=== PATIENT | female | born 1985 | race Caucasian/White ===

== ENCOUNTER 2019-07-21 17:16 | Inpatient (IN) | payer OTHER ==
[~2019-07-21 17:16] MED LIST: Bupivacaine 0.25% HCL 30 ML VIAL ONE; Bupivacaine PF 0.5% 30 ML VIAL ONE
[2019-07-21 18:10] VITALS: BMI 31.4
[2019-07-21] MEDS ORDERED: hydrALAZINE 20 MG/ML VIAL ONE (18:17)
[2019-07-21] MEDS ORDERED: Promethazine HCl 25 MG/ML VIAL IM PRN ×2 (18:20→22:59)
[2019-07-21] MEDS ORDERED: Betamet Acet/Betamet Na Ph 30 MG/5 ML VIAL ONE (18:20)
[2019-07-21] MEDS ORDERED: Acetaminophen 500 MG TAB PO PRN (18:20)
[2019-07-21] MEDS ORDERED: Ondansetron PF 4 MG/2 ML Vial IVP PRN ×2 (18:20→22:59)
[2019-07-21] MEDS ORDERED: hydrALAZINE 20 MG/ML VIAL SLOW IVP PRN (18:20)
[2019-07-21] MEDS ORDERED: Butorphanol Tartrate 1 MG/ML VIAL SLOW IVP PRN (18:20)
[2019-07-21] MEDS ORDERED: Calcium Gluc 4.6 MEQ/10 ML (100 MG/ML) SLOW IVP PRN ×2 (18:22→18:53)
[2019-07-21] MEDS ORDERED: Betamet Acet/Betamet Na Ph 30 MG/5 ML VIAL IM SCH (18:30)
--- NOTE | 2019-07-21 18:41 | PDOC.LDHP ---
Labor and Delivery H&P Chief complaint: other (JONES, elevated BPs) HPI: 33 y/o at 33w6d, patient of Dr. Pizano, presents with JONES and elevated BPs at home. Pt has tried excedrin migraine, ice, and heat with no relief. Has hx of tension JONES but has not had one in a while. Reports elevated BPs in clinic this week and was started on Nifedipine Wednesday. Denies RUQ pain, vision changes or other concerns. Denies VB, LOF, ctx, or decreased FM. ROS neg for HEENT, CV, pulm, GI, , neuro, psych, skin, musculoskeletal, or constitutional symptoms other than mentioned above. OB History Details: 3 prior deliveries, 1 for preeclampsia, other 2 were PTL. Current complications: gestational diabetes Past Medical History: None Current medications: pre- vitamins, other ([place], Metformin, Nifedipine) Previous surgical history: cholecystectomy Allergies/Adverse Reactions: Allergies Allergy/AdvReac Type Severity Reaction Status Date / Time No Known Allergies Allergy Verified 07/21/19 18:46 Social history: none - Physical Exam Abnormal vital signs: Severe range BPs General: NAD, resting Lungs: nonlabored breathing Abdomen: gravid Extremeties: no edema FHT: category 1 (135, mod variability, + accels, no decels) [place] contractions every: none - Assessment 33 y/o at 33w6d with severe range BPs requiring IV antihypertensives. - Plan -: Admit to L&D for BP monitoring, labs. Will administer celestone for lung maturity. NICU notified. GHTN or preeclampsia with severe features is indication for induction at 34 weeks (after midnight tonight). Dr. Shultz covering for Dr. Pizano this weekend, notified. Will proceed with plan to induce tonight and start MgSO4 now.
[2019-07-21] MEDS: Labetalol HCl 100 MG/20 ML VIAL SLOW IVP PRN ×2 (18:48→21:05)
[2019-07-21] MEDS ORDERED: Magnesium Sulfate 20 gm/500 ml 20 GM/500 ML BAG ONE (18:55)
[2019-07-21 18:59] LABS: Mean Corpuscular HGB CONC 32.6 g/dL (32.0-36.0); Mean Corpuscular Hemoglobin 26.3 pg (27.0-31.0); Mean Corpuscular Volume 80.7 fL (78.0-98.0); Mean Platelet Volume 9.2 fL (7.4-10.4); Platelet Count 271 thou/uL (130-400); RBC Distribution Width 15.5 % (11.5-14.5); Red Blood Cell (RBC) Count 4.93 mill/uL (4.20-5.40); White Blood Cell (WBC) Count 7.8 thou/uL (4.8-10.8)
[2019-07-21] MEDS ORDERED: Magnesium Sulfate 20 GM/WATER 500 ML BAG IVPB SCH (19:00)
[2019-07-21] MEDS: Magnesium Sulfate 20 gm/500 ml 20 GM/500 ML BAG IVPB SCH (19:34)
[2019-07-21] MEDS: Lactated Ringer's 1,000 ML IV SCH (19:35)
[2019-07-21 19:36] LABS: Creatinine, Urine 99.77 mg/dL (47-110)
[2019-07-21 19:38] LABS: Syphilis Antibody Nonreactive (Nonreactive); Syphilis Antibody Index 0.04 S/CO (<1.00 Non-Reactive)
[2019-07-21] MEDS ORDERED: Lidocaine 1% (PF) 30 ML VIAL SC PRN (19:58)
[2019-07-21] MEDS ORDERED: Ibuprofen 800 MG TAB PO PRN (19:58)
[2019-07-21] MEDS ORDERED: NS / Oxytocin 40 units/1000ml 1,000 ML IV PRN (19:58)
[2019-07-21] MEDS ORDERED: Misoprostol 200 MCG TAB PR PRN (19:58)
[2019-07-21] MEDS ORDERED: Carboprost 250 MCG/ML AMP IM PRN (19:58)
[2019-07-21] MEDS ORDERED: HYDROcodone/Acetaminophen 5/325 mg Tablet PO PRN ×2 (19:58)
[2019-07-21] MEDS ORDERED: Diphenoxylate HCl/Atropine Tablet PO PRN ×2 (19:58)
[2019-07-21] MEDS ORDERED: Penicillin G Potassium 5 MILL.UNITS in Sodium Chloride 0.9% 100 ML IVPB SCH (20:00)
[2019-07-21 20:10] LABS: ALT (SGPT) 9 U/L (8-55); AST (SGOT) 12 U/L (5-34); Albumin 3.7 g/dL (3.5-5.0); Alkaline Phosphatase 168 U/L (40-110); Anion Gap 18 mmol/L (10-20); BUN (Urea Nitrogen) 7 mg/dL (7.0-18.7); Bilirubin, Total Less than 0.2 mg/dL (0.2-1.2); Calc. Creatinine Clearance 183 mL/min (70-130); Calcium 9.8 mg/dL (7.8-10.44); Carbon Dioxide 21 mmol/L (22-29); Chloride 103 mmol/L (98-107); Estimated GFR-MDRD Greater than 90; Globulin 3.6 g/dL (2.4-3.5); Glucose 79 mg/dL (70-105); Protein, Total 7.3 g/dL (6.0-8.3); Sodium 138 mmol/L (136-145)
[2019-07-21] MEDS: Misoprostol 100 MCG TAB VAG SCH (20:12)
[2019-07-21] MEDS: Penicillin G 2.5 MILL.units 2.5 MILL.UNITS in Premix Bag 1 BAG IVPB SCH (20:17)
[2019-07-21 22:03] LABS: HBSAg Index 0.11 S/CO (0-0.99); Hep B Surf Ag Non-Reactive S/CO (NonReactive)
[2019-07-21] MEDS ORDERED: Fentanyl 4 mcg/Bup 0.1% Cadd 100 ML ONE (22:29)
[2019-07-21] MEDS ORDERED: Naloxone HCl 0.4 mg/ml Vial IVP PRN ×2 (22:59)
[2019-07-21] MEDS ORDERED: EPHEDRINE 25 MG/5 ML SYRINGE SLOW IVP PRN (22:59)
[2019-07-21] MEDS ORDERED: Lactated Ringer's 500 ML IV PRN (22:59)
[2019-07-21] MEDS ORDERED: diphenhydrAMINE 50 MG/ML VIAL IVP PRN (22:59)
[2019-07-21] MEDS ORDERED: Fentanyl 4 mcg/Bupivacaine 0.1% Cassette 100 ML EPIDURAL SCH (23:00)
[2019-07-21] MEDS ORDERED: Communication Order-Pharmacy FS SCH (23:00)
[2019-07-22] MEDS: Penicillin G 2.5 MILL.units 2.5 MILL.UNITS in Premix Bag 1 BAG IVPB SCH ×3 (00:03→08:05)
[2019-07-22] MEDS: Misoprostol 100 MCG TAB VAG SCH (01:46)
[2019-07-22] MEDS ORDERED: NS w/ Oxytocin 10 units 500 ML IV SCH ×2 (02:00)
[2019-07-22] MEDS: Magnesium Sulfate 20 gm/500 ml 20 GM/500 ML BAG IVPB SCH ×3 (03:05→23:23)
[2019-07-22] MEDS: Acetaminophen 325 MG TAB PO PRN (04:52)
[2019-07-22] MEDS ORDERED: Fentanyl 4 mcg/Bup 0.1% Cadd 100 ML ONE ×2 (05:53→11:01)
--- NOTE | 2019-07-22 06:40 | PDOC.LDPN ---
Labor & Delivery Progress Note - Subjective Subjective: comfortable - Objective Vital signs reviewed and normal: yes General: NAD, resting Uterine fundus: non tender Dilation: 3 Effacement: 50% Station: -2 FHT: category 1 [place] contractions every: 2 mins, difficult to monitor AROM: clear fluid IUPC placed: yes Plan: continue plan of care
[2019-07-22] MEDS: Lactated Ringer's 1,000 ML IV SCH ×2 (07:20→17:26)
[2019-07-22] MEDS ORDERED: Lidocaine 1% (PF) 30 ML VIAL ONE ×2 (10:22→10:55)
[2019-07-22] MEDS ORDERED: NS / Oxytocin 40 units/1000ml 0 ML ONE (10:22)
[2019-07-22] MEDS ORDERED: NS / Oxytocin 40 units/1000ml 1,000 ML ONE (10:55)
[2019-07-22] MEDS ORDERED: Fentanyl 100 MCG/2 ML VIAL ONE (11:34)
[2019-07-22] MEDS ORDERED: Carboprost 250 MCG/ML AMP ONE (11:58)
[2019-07-22] MEDS: Misoprostol 200 MCG TAB ONE ×2 (12:44→13:24)
[2019-07-22] MEDS ORDERED: Milk Of Magnesia 30 ML UDCUP PO PRN (21:37)
[2019-07-22] MEDS ORDERED: Bisacodyl 10 MG SUPP PR PRN (21:37)
[2019-07-22] MEDS ORDERED: hydrALAZINE 20 MG/ML VIAL SLOW IVP PRN (21:37)
[2019-07-22] MEDS ORDERED: NS / Oxytocin 40 units/1000ml 1,000 ML IV SCH (21:45)
[2019-07-22] MEDS: Ibuprofen 800 MG TAB PO SCH (23:22)
[2019-07-23] MEDS: Lactated Ringer's 1,000 ML IV SCH ×2 (04:45→18:49)
[2019-07-23] MEDS: Ibuprofen 800 MG TAB PO SCH ×3 (06:04→22:31)
[2019-07-23] MEDS: Acetaminophen 325 MG TAB PO PRN (07:26)
[2019-07-23] MEDS ORDERED: Adacel (T-DAP) 0.5 ML SYRINGE IM ONE (09:00)
[2019-07-23] MEDS: Docusate Calcium (SURFAK) 240 MG CAP PO SCH ×2 (09:20→22:32)
[2019-07-23] MEDS: Prenatal Vitamin 1 TAB PO SCH (09:20)
[2019-07-23] MEDS: Ferrous Sulfate 325 MG TAB PO SCH ×2 (09:21→18:46)
[2019-07-23] MEDS: Magnesium Sulfate 20 gm/500 ml 20 GM/500 ML BAG IVPB SCH (09:23)
--- NOTE | 2019-07-23 13:09 | PDOC.PP ---
Post Progress Note Post Day #: 1 PO intake tolerated: yes Flatus: yes Ambulation: yes Weight Weight 195 lb - Physical Examination General: NAD Cardiovascular: no m/r/g, RRR Respiratory: clear to auscultation bilaterally, non-labored breathing Abdominal: + bowel sounds, lochia, no distention Extremities: negative homans (B) Neurological: no gross focal deficits Psychiatric: A&Ox3, normal affect (1. Magnesium Sulfate is being DC'ed now at 24 hours. 2. Will start Procardai XL 60mg q 24 hrs at 1500 today. 3. CBC/CMP ordered now 4. Advance diet slowly this afternoon.) Result Diagrams: 07/21/19 18:41 07/21/19 18:41 Additional Labs: Post Labs Blood Type B POSITIVE 07/21/19 18:41 Hep Bs Antigen Non-Reactive S/CO (NonReactive) 07/21/19 18:41
[2019-07-23 13:51] LABS: #Basophils 0.1 thou/uL (0.0-0.2); #Lymphocytes 2.2 thou/uL (1.20-3.40); #Monocytes 0.3 thou/uL (0.11-0.59); #Neutrophils 5.9 thou/uL (1.40-6.50); %Basophils 0.8 % (0.0-1.0); %Eosinophils 0.3 % (0.0-10.0); %Lymphocytes 26.2 % (21.0-51.0); %Monocytes 3.4 % (0.0-10.0); %Neutrophils 69.3 % (42.0-75.0); Hemoglobin 11.9 g/dL (12.0-16.0); Mean Corpuscular HGB CONC 32.3 g/dL (32.0-36.0); Mean Corpuscular Hemoglobin 26.4 pg (27.0-31.0); Mean Corpuscular Volume 81.8 fL (78.0-98.0); Mean Platelet Volume 7.7 fL (7.4-10.4); Platelet Count 234 thou/uL (130-400); RBC Distribution Width 15.8 % (11.5-14.5); Red Blood Cell (RBC) Count 4.49 mill/uL (4.20-5.40); White Blood Cell (WBC) Count 8.5 thou/uL (4.8-10.8)
[2019-07-23 14:24] LABS: ALT (SGPT) 8 U/L (8-55); AST (SGOT) 12 U/L (5-34); Albumin 3.1 g/dL (3.5-5.0); Alkaline Phosphatase 115 U/L (40-110); Anion Gap 12 mmol/L (10-20); BUN (Urea Nitrogen) 5 mg/dL (7.0-18.7); Bilirubin, Total 0.2 mg/dL (0.2-1.2); Calc. Creatinine Clearance 203 mL/min (70-130); Carbon Dioxide 25 mmol/L (22-29); Chloride 98 mmol/L (98-107); Estimated GFR-MDRD Greater than 90; Globulin 3.2 g/dL (2.4-3.5); Glucose 74 mg/dL (70-105); Potassium 3.7 mmol/L (3.5-5.1); Protein, Total 6.3 g/dL (6.0-8.3); Sodium 131 mmol/L (136-145)
[2019-07-23] MEDS: NIFEdipine XL 60 MG TAB PO SCH (15:04)
[2019-07-23] MEDS: Penicillin G 2.5 MILL.units 2.5 MILL.UNITS in Premix Bag 1 BAG IVPB SCH (18:51)
--- NOTE | 2019-07-24 02:26 | DN ---
DATE OF PROCEDURE: 07/22/2019 TIME: 1238 hours central daylight savings time. PREOPERATIVE DIAGNOSIS: Intrauterine at 34 weeks and 0 days with a diagnosis of preeclampsia with severe features. POSTOPERATIVE DIAGNOSIS: Intrauterine at 34 weeks and 0 days with a diagnosis of preeclampsia with severe features. PROCEDURE: Spontaneous vaginal delivery over intact perineum. FINDINGS: Viable female infant weighing 1925 g or 4 pounds 4 ounces with Apgars of eight and nine. QUANTITATIVE BLOOD LOSS: 125 mL. COMPLICATIONS: None. PROCEDURE IN DETAIL: The patient presented to [facility] where she was admitted to the labor and delivery service. The patient underwent a normal and uneventful labor with normal cervical dilatation until she was found to be completely dilated. She was then allowed to push and was able to bring the baby down and delivered the baby in a vertex presentation without difficulties. Once the head delivered in occiput anterior position, the shoulders followed spontaneously along with the rest of the baby's body. Once out the baby's mouth and nose were bulb suctioned. The cord was clamped and cut and baby was handed to waiting attendants. Cord blood was collected. Gentle fundal massage was performed and the placenta delivered intact without problems. Hemostasis was assured. Quantitative blood loss was calculated. Inspection of the cervix, vaginal vault, and perineum did not reveal any lacerations needing suturing. Once again, hemostasis was within normal limits and the patient was allowed to recover in the labor and delivery room. Baby went to nursery. Job ID: [id number]
[2019-07-24] MEDS: Ibuprofen 800 MG TAB PO SCH ×3 (05:30→21:02)
[2019-07-24] MEDS: Prenatal Vitamin 1 TAB PO SCH (10:23)
[2019-07-24] MEDS: Docusate Calcium (SURFAK) 240 MG CAP PO SCH ×2 (10:23→21:02)
[2019-07-24] MEDS: Ferrous Sulfate 325 MG TAB PO SCH (12:02)
[2019-07-24] MEDS: NIFEdipine XL 60 MG TAB PO SCH (14:40)
[2019-07-25] MEDS: Ibuprofen 800 MG TAB PO SCH ×2 (05:07→13:42)
[2019-07-25 07:57] VITALS: BP 136/78; TEMP 98.3
[2019-07-25] MEDS: Docusate Calcium (SURFAK) 240 MG CAP PO SCH (08:13)
[2019-07-25] MEDS: Prenatal Vitamin 1 TAB PO SCH (08:13)
[2019-07-25] MEDS: Ferrous Sulfate 325 MG TAB PO SCH (08:15)
[2019-07-25] MEDS: NIFEdipine XL 60 MG TAB PO SCH (13:42)
== END 2019-07-25 15:15 | disposition home or self-care (01) | DRG 807 ==
LOC: L&D/OP 17:16 → L&D 22:33 → 3SW 07-23 17:36
PROVIDERS: ADMIT Obstetrics & Gynecology; ATTEND Obstetrics & Gynecology
PROC: 10E0XZZ Delivery of Products of Conception, External Approach (ICD-10-PCS; principal; 2019-07-21)
PROC: 10907ZC Drainage of Amniotic Fluid, Therapeutic from Products of Conception, Via Natural or Artificial Opening (ICD-10-PCS; 2019-07-22)
PROC: 10H07YZ Insertion of Other Device into Products of Conception, Via Natural or Artificial Opening (ICD-10-PCS; 2019-07-22)
PROC: 3E033VJ Introduction of Other Hormone into Peripheral Vein, Percutaneous Approach (ICD-10-PCS; 2019-07-22)
DX: O14.14 Severe pre-eclampsia complicating childbirth (principal); Z37.0 Single live birth; Z3A.34 34 weeks gestation of pregnancy; O24.425 Gestational diabetes mellitus in childbirth, controlled by oral hypoglycemic drugs
CPT/HCPCS: 36415; 51702; 80053; 82570; 84156; 85025; 85027; 86780; 86850; 86900; 86901; 87340; 88307; 99285; J0360; J0702; J1200; J2001; J2310; J2540; J2590; J3010; J3475; J3490; S0020

== ENCOUNTER 2021-05-08 07:44 | Outpatient (CLI) | payer OTHER | END 2021-05-08 07:45 | disposition home or self-care (01) | LOC: BICULT 07:44 | PROVIDERS: ATTEND Family Medicine | DX: R79.89 Other specified abnormal findings of blood chemistry (principal); R16.0 Hepatomegaly, not elsewhere classified; K76.0 Fatty (change of) liver, not elsewhere classified | CPT/HCPCS: 76700 ==

== ENCOUNTER 2021-07-18 14:50 | Outpatient (CLI) | payer OTHER | END 2021-07-18 14:51 | disposition home or self-care (01) | LOC: BICMAMMO 14:50 | PROVIDERS: ATTEND Family Medicine | DX: N63.10 Unspecified lump in the right breast, unspecified quadrant (principal); N63.20 Unspecified lump in the left breast, unspecified quadrant | CPT/HCPCS: 77066; G0279 ==

== ENCOUNTER 2023-01-26 08:55 | Outpatient (CLI) | payer BC | END 2023-01-26 08:56 | disposition home or self-care (01) | LOC: BICRAD 08:55 | PROVIDERS: ATTEND Family Medicine | DX: M46.1 Sacroiliitis, not elsewhere classified (principal) | CPT/HCPCS: 72220 ==